=== PATIENT | female | born 1945 ===

== ENCOUNTER 2018-05-26 12:41 | Outpatient (CLI) | payer MEDICARE ==
[2018-05-26 13:26] LABS: Bilirubin Negative (Negative); Blood, Urine Negative (Negative); Clarity SL HAZY (Clear); Glucose, Urine (Dipstick) Negative (Negative); Leukocyte Negative (Negative); Nitrite Negative (Negative); Protein, Urine (Dipstick) Negative (Neg-Trace); Specific Gravity, Urine 1.007 (1.005-1.030); Urobilinogen 0.2 mg/dL (0.2-1.0); pH, Urine 6.5 (5.0-9.0)
== END 2018-05-26 12:42 | disposition home or self-care (01) ==
LOC: NAV LAB 12:41
DX: N39.0 Urinary tract infection, site not specified (principal)
CPT/HCPCS: 81003; 87086

== ENCOUNTER 2018-09-14 13:42 | Outpatient (CLI) | payer MEDICARE ==
[2018-09-14 14:33] LABS: Bilirubin Negative (Negative); Blood, Urine Negative (Negative); Glucose, Urine (Dipstick) Negative (Negative); Leukocyte Moderate (Negative); Nitrite Positive (Negative); Protein, Urine (Dipstick) Negative (Neg-Trace); Urobilinogen 0.2 mg/dL (Less than 2)
[2018-09-14 14:38] LABS: Bacteria/HPF 4+ HPF (None Seen); Clarity SL HAZY (Clear); Renal Epithelial 0-3 HPF (None Seen); Squamous Epithelial 0-3 HPF (0-3)
== END 2018-09-14 13:43 | disposition home or self-care (01) ==
LOC: NAV LABSP 13:42
DX: N39.0 Urinary tract infection, site not specified (principal)
CPT/HCPCS: 81003; 81015; 87077; 87086; 87186